=== PATIENT | male | born 1995 | race Caucasian/White ===

== ENCOUNTER 2018-07-18 01:18 | Emergency (ER) | payer OTHER ==
[~2018-07-18] VITALS: Wt 71.6 kg
[2018-07-18 01:29] VITALS: BP 144/94; PULSE 97; RESP 18
[2018-07-18] MEDS ORDERED: IBUP-1542 PO (01:59)
[2018-07-18] MEDS ORDERED: CEPH-443 PO (01:59)
[2018-07-18] MEDS ORDERED: HYDR-4011 PO (01:59)
[2018-07-18] MEDS ORDERED: HYDROCODONE/APAP (5/325) TAB PO ONE (02:00)
[2018-07-18] MEDS ORDERED: CEPHALEXIN 500 MG CAP PO ONE (02:00)
[2018-07-18] MEDS ORDERED: IBUPROFEN 600 MG TAB PO ONE (02:00)
--- NOTE | 2018-07-18 02:02 | ERD ---
ER Documentation Chief Complaint Chief Complaint DENTAL PAIN HPI 23-year-old male presents with left lower dental pain worsening over the last week. He just recently obtained possible access to dentistry with help from his family. Denies any fevers, difficulty swallowing, difficulty breathing. He has no recent dental care. He has known carious teeth. ROS All systems reviewed and are negative except as per history of present illness. Medications Home Meds Active Scripts Ibuprofen* (Motrin*) 600 Mg Tab, 600 MG PO Q6, #30 TAB Prov:MELISSA JORDAN MD 07/18/18 Cephalexin* (Keflex*) 500 Mg Capsule, 500 MG PO QID for 10 Days, CAP Prov:MELISSA JODRAN MD 07/18/18 Hydrocodone/Acetaminophen (Blackstone 5-325 Tablet) 1 Each Tablet, 1 TAB PO Q6H PRN for PAIN, #10 TAB Prov:MELISSA JORDAN MD 07/18/18 FmHx Family History: No diabetes, No coronary disease, No other Physical Exam Vitals Vital Signs Date Temp Pulse Resp B/P (MAP) Pulse Ox O2 O2 Flow FiO2 Time Delivery Rate 07/18/18 99.6 97 18 144/94 97 01:29 (111) Physical Exam Const: No acute distress Head: Atraumatic Eyes: Normal Conjunctiva ENT: Normal External Ears, Nose and Mouth. Poor dentition in the area of pain particularly left lower molar with exposed root and fracture. Facial erythema or induration and airway patent. Neck: Full range of motion. No meningismus. Resp: Clear to auscultation bilaterally Cardio: Regular rate and rhythm, no murmurs Abd: Soft, non tender, non distended. Normal bowel sounds Skin: No petechiae or rashes Back: No midline or flank tenderness Ext: No cyanosis, or edema Neur: Awake and alert Psych: Normal Mood and Affect Results 24 hrs Current Medications Medications Dose Sig/Thi Start Time Status Last (Trade) Ordered Route PRN Stop Time Admin Dose Reason Admin Ibuprofen 600 mg ONCE ONCE 07/18/18 (Motrin) PO 02:00 07/18/18 02:01 1 tab ONCE ONCE 07/18/18 Acetaminophen PO 02:00 07/18/18 / 02:01 Hydrocodone Bitart (Blackstone (5/325)) Cephalexin 500 mg ONCE ONCE 07/18/18 (Keflex) PO 02:00 07/18/18 02:01 Procedures/MDM Patient presents with left lower molar dental pain with likely exposed root and fracture. He was given Blackstone, ibuprofen and Keflex. Will treat with a short course of Blackstone, ibuprofen and Keflex. Cures review negative. Patient is advised to follow-up with dentist for further evaluation treatment return for difficulty swallowing, difficulty breathing, facial swelling, new worsening symptoms. The patient was stable with no new complaints during the ER course. Clinically, there is no current evidence to suggest meningitis, sepsis, acute abdomen, pneumonia, stroke, acute coronary syndrome, pulmonary embolism, aortic dissection or any other emergent condition appearing to require further evaluation or hospitalization. Patient counseled regarding my diagnostic impression and care plan. Prior to discharge all questions answered. Pt agrees with treatment plan and understands strict return precautions. Pt is instructed to follow up with primary care provider within 24-48 hours. Precautionary instructions provided including instructions to return to the ER if not improving or for any worsening or changing symptoms or concerns. Disclaimer: Inadvertent spelling and grammatical errors are likely due to EHR/dictation software use and do not reflect on the overall quality of patient care. Also, please note that the electronic time recorded on this note does not necessarily reflect the actual time of the patient encounter. Departure Diagnosis: Primary Impression: Toothache Condition: Stable Patient Instructions: Dental Pain Referrals: [facility] ([facility]) Additional Instructions: See dentist for further evaluation and treatment. Recheck for fevers, difficulty breathing, difficulty swallowing, new worsening symptoms. MELISSA JORDAN MD July 18, 2018 02:02
== END 2018-07-18 02:43 | disposition home or self-care (01) ==
LOC: FTE 01:18
DX: K08.89 Other specified disorders of teeth and supporting structures (principal)
CPT/HCPCS: Z7502; Z7610; 99283